=== PATIENT | female | born 1990 | race Caucasian/White ===

== ENCOUNTER 2017-12-05 00:15 | Inpatient (IN) | payer BC ==
[2017-12-05] MEDS ORDERED: LIDOCAINE 0.5% (PF) 5 MG/ML (50 ML SDV) SQ PRN (00:46)
[2017-12-05] MEDS ORDERED: CARBOPROST TROMETHAMINE 250 MCG/ML 1 ML AMP IM PRN (00:46)
[2017-12-05] MEDS ORDERED: OXYTOCIN 10 UNIT/ML 1 ML VIAL IM PRN (00:46)
[2017-12-05] MEDS ORDERED: AMPICILLIN 2,000 MG in SODIUM CHLORIDE 0.9% 100 ML IVPB STA (00:46)
[2017-12-05] MEDS ORDERED: TERBUTALINE 1 MG/ML VIAL SQ PRN (00:46)
[2017-12-05] MEDS ORDERED: METHYLERGONOVINE 0.2 MG/ML 1 ML AMP IM PRN (00:46)
[2017-12-05] MEDS ORDERED: OXYTOCIN 20 UNITS/1000 ML NS 1,000 ML IV SCH ×2 (01:00→13:15)
[2017-12-05] MEDS: LACTATED RINGERS 1,000 ML IV SCH ×3 (01:16→09:27)
--- NOTE | 2017-12-05 01:19 | P.HPOB ---
History of Present Illness H&P Date: 12/05/17 Chief Complaint: Gush of fluid. This patient is a pleasant 27-year-old 1 para 0 female estimated date of confinement 01/02/2018 estimated gestational age 36-0/7 weeks gestation who is admitted to labor and delivery with complaints of gush of fluid that happened approximately 10:30 this evening. Patient's care is per Dr. Sanz and appears to be uncomplicated. Patient did have a positive group B strep culture done at her last visit. Patient is not having any contractions. Review of Systems Gastrointestinal: Reports heartburn Genitourinary: Reports Menstruation: Reports amenorrhea Past Medical History Additional Past Medical History / Comment(s): ADHD. History of Any Multi-Drug Resistant Organisms: None Reported Additional Past Surgical History / Comment(s): Patient had a birthmark removed at age 3. Past Anesthesia/Blood Transfusion Reactions: No Reported Reaction Past Psychological History: ADD/ADHD Smoking Status: Never smoker Past Alcohol Use History: None Reported Past Drug Use History: None Reported Medications and Allergies Home Medications Medication Instructions Recorded Confirmed Type Iron 1 tab PO DAILY 12/05/17 12/05/17 History Pnv No.95/Ferrous Fum/Folic AC 1 tab PO DAILY 12/05/17 12/05/17 History [ Multivitamin Tablet] Allergies Allergy/AdvReac Type Severity Reaction Status Date / Time No Known Allergies Allergy Verified 12/05/17 00:41 Exam Intake and Output 12/04/17 12/04/17 12/05/17 14:59 22:59 06:59 Other: Weight 113.398 kg - OBG Physical Exam Abdomen: bowel sounds normal, no diffuse tenderness, no bruit present, no guarding noted, no hepatomegaly, no splenomegaly, no mass Vulva: both: normal Vagina: normal moisture, no discharge Cervix: no lesion (Cervix is 2 cm dilated 50% effaced and there is gross rupture membranes.), no discharge Uterus: enlarged (Fundal height in the office was 35 cm) Results blood work shows she is O negative, rubella immune, RPR nonreactive, hepatitis B is negative, group B strep was positive, Toxo negative Assessment and Plan Assessment: This is a pleasant 27-year-old 1 para 0 female 36-0/7 weeks gestation with premature rupture of membranes and positive group B strep culture. Plan at this time is antibiotic prophylaxis and Pitocin induction of labor. I did discuss with the patient and her family the fact that the baby is slightly premature and could go to special care. We anticipate vaginal delivery (1) 36 weeks gestation of Current Visit: Yes Status: Acute Code(s): Z3A.36 - 36 WEEKS GESTATION OF SNOMED Code(s): 79392218 (2) Group B streptococcal carriage complicating Current Visit: Yes Status: Acute Code(s): O99.820 - STREPTOCOCCUS B CARRIER STATE COMPLICATING SNOMED Code(s): 714523706996183 (3) premature rupture of membranes Current Visit: Yes Status: Acute Code(s): O42.919 - PRETRM QUE ROM, UNSP TIME BETW RUPT AND ONST LABR, UNSP TRI SNOMED Code(s): 766320523
[2017-12-05 01:29] LABS: Basophils % (A) 0 %; Eosinophils # (A) 0.1 k/uL (0-0.7); Eosinophils % (A) 1 %; HCT 35.1 % (34.0-46.0); HGB 11.4 gm/dL (11.4-16.0); Lymphocytes # (A) 2.1 k/uL (1.0-4.8); Lymphocytes % (A) 17 %; MCH 25.2 pg (25.0-35.0); MCHC 32.7 g/dL (31.0-37.0); MCV 77.2 fL (80.0-100.0); Mean Platelet Volume 7.4; Monocytes # (A) 0.5 k/uL (0-1.0); Monocytes % (A) 4 %; Neutrophils # (A) 9.1 k/uL (1.3-7.7); Neutrophils % (A) 77 %; Platelet Count 206 k/uL (150-450); RBC 4.54 m/uL (3.80-5.40); RDW 14.7 % (11.5-15.5); WBC 11.9 k/uL (3.8-10.6)
[2017-12-05 01:33] VITALS: BMI 42.9
[2017-12-05] MEDS: AMPICILLIN 1,000 MG in SODIUM CHLORIDE 0.9% 50 ML IVPB SCH ×3 (04:52→15:13)
[2017-12-05] MEDS ORDERED: ROPIVACAINE 100 MG, fentaNYL (PF) 200 MCG in SODIUM CHLORIDE 0.9% 76 ML EPIDURAL ONE (09:45)
[2017-12-05] MEDS ORDERED: diphenhydrAMINE 50 MG/ML 1 ML VIAL IVP PRN (13:15)
[2017-12-05] MEDS ORDERED: ZOLPIDEM 5 MG TAB PO PRN (13:15)
[2017-12-05] MEDS ORDERED: HYDROCORTISONE 2.5% RECTAL CREAM 30 GM TUBE RECTAL PRN (13:15)
[2017-12-05] MEDS ORDERED: BENZOCAINE/MENTHOL SPRAY 1 GM/SPRAY AEROSOL TOPICAL PRN (13:15)
[2017-12-05] MEDS ORDERED: SIMETHICONE 80 MG CHEWABLE PO PRN (13:15)
[2017-12-05] MEDS ORDERED: BISACODYL 10 MG SUPP RECTAL PRN (13:15)
[2017-12-05] MEDS ORDERED: WITCH HAZEL 1 EACH MED..PAD TOPICAL PRN (13:15)
[2017-12-05] MEDS ORDERED: Rhogam IMMUNE GLOBULIN 1,500 UNIT/1 ML IM ONE (13:15)
[2017-12-05] MEDS ORDERED: diphenhydrAMINE 25 MG CAP PO PRN (13:15)
[2017-12-05] MEDS ORDERED: LANOLIN CREAM 5 GM TUBE TOPICAL PRN (13:15)
--- NOTE | 2017-12-05 13:21 | P.PROBDLV ---
Vaginal Delivery Note - . Vaginal Delivery Note: Normal vaginal delivery viable female Apgars 9 and 9 delivery time is 1256 hrs. Please see dictated H&P for intimate details of this patient's admission. In brief summary this is a pleasant 27-year-old 1 para 0 female 36-0/7 weeks gestation admitted to labor and delivery with premature rupture membranes. Patient is a positive group B strep culture is 2 cm dilated, therefore she is started on antibiotics and has Pitocin induction of labor. Patient progresses and does get an epidural for pain control. Patient thereafter goes quickly and pushes for approximately 45 minutes and pushes the head to the perineum. The posterior perineum is supported and we have controlled delivery of the infant's head over the intact perineum. Mouth and nares are bulb suctioned. There is a loose nuchal cord which is reduced. With gentle downward traction we then have deliver the anterior and posterior shoulder and rest this infant's body. This is a vigorous viable female infant Apgars are 9 and 9 delivery time is 1256 hrs. After delivery of the infant the infant is late on the mother's abdomen. Once the cord is done pulsating, it is doubly clamped and transected and appears to be trivascular. The placenta is then spontaneously delivered intact. Inspection of the perineum shows a small second-degree posterior laceration which is repaired with 3-0 Vicryl in the usual fashion. Excellent reapproximation is noted. Estimated blood loss is 150 mL. There are no complications. All counts are correct 3. The and mother stable in delivery room.
[2017-12-05] MEDS: IBUPROFEN 600 MG TAB PO PRN ×2 (15:24→20:43)
[2017-12-05] MEDS: ACETAMINOPHEN TAB 325 MG TAB PO PRN (18:15)
[2017-12-06] MEDS: IBUPROFEN 600 MG TAB PO PRN ×3 (08:39→23:50)
--- NOTE | 2017-12-06 09:01 | P.PNOBGVD ---
Subjective - Subjective Principal diagnosis: Status post vaginal delivery day #1 Interval history: Patient is doing well. Lochia is moderate. Pain is well-controlled. She is breast-feeding. Patient reports: Reports appetite normal, Reports voiding normally, Reports pain well controlled, Reports ambulating normally : doing well, nursing well Objective - Latest Vital Signs Latest vital signs: Vital Signs Temp Pulse Resp BP Pulse Ox 12/06/17 00:00 98.5 F 84 16 132/55 99 12/05/17 20:00 97.9 F 84 16 135/75 12/05/17 15:17 97.5 F L 90 16 126/64 12/05/17 14:47 96 16 120/64 12/05/17 14:17 101 H 16 122/61 12/05/17 14:02 96 16 124/65 12/05/17 13:47 109 H 16 136/79 12/05/17 13:32 109 H 16 126/71 12/05/17 13:17 97.5 F L 122 H 16 109/55 Intake and Output 12/05/17 12/06/17 12/06/17 22:59 06:59 14:59 Intake Total 3000 Balance 3000 Intake: IV 3000 Lactated Ringers 1,000 ml 2000 @ 125 mls/hr IV .Q8H ANGELA Rx#:[id number] Oxytocin 20 Units/1000 ml 1000 Ns 1,000 ml @ 1 MILLIUNIT/MIN 3 mls/hr IV .Q24H ANGELA Rx#:[id number] Other: # Voids 1 1 Assessment and Plan Assessment: Impression is status post vaginal delivery day #1. Plan: We'll continue care today. Anticipate discharge home tomorrow.
[2017-12-06] MEDS: SENNOSIDES-DOCUSATE SODIUM 1 EACH TAB PO SCH ×3 (11:54→21:24)
[2017-12-06] MEDS: ACETAMINOPHEN TAB 325 MG TAB PO PRN (20:34)
[2017-12-07] MEDS: IBUPROFEN 600 MG TAB PO PRN (07:42)
[2017-12-07 08:30] VITALS: BP 125/71; PULSE 74; RESP 15; TEMP 97.9
--- NOTE | 2017-12-07 08:37 | P.DS ---
Providers Date of admission: 12/05/17 00:43 Expected date of discharge: 12/07/17 Attending physician: Juliet Sanz Primary care physician: Stated None Hospital Course: 27-year-old female 1 para 0 at 36-0/7 weeks who presented to labor and delivery with complaints of spontaneous rupture of membranes. She did receive antibiotics due to positive group B streptococcus. She delivered vaginally a viable female infant on 12/05/2017 with scores of 9 at 1 minute and 9 at 5 minutes and weight of 6 lbs. 1 oz. Her course has been uncomplicated. She is breast-feeding. Lochia is decreasing. Pain is fairly well controlled with ibuprofen. Vital signs are stable. Abdomen is soft with fundus firm and nontender. Extremities show negative Homans. Impression is status post vaginal delivery day #2. Plan is to discharge home today. Routine instructions are given. She will be given a prescription for a breast pump and ibuprofen. She is advised to follow up in the office in 6 weeks for a check. She is advised to call the office if she has any further questions or concerns prior to her appointment time. Procedures: Spontaneous vaginal delivery of a viable female on 12/05/2017 Patient Condition at Discharge: Stable Plan - Discharge Summary New Discharge Prescriptions: New Ibuprofen [Motrin] 600 mg PO Q6HR PRN #60 tab PRN Reason: Mild Pain Or Fever >= 100.5 Continue Pnv No.95/Ferrous Fum/Folic AC [ Multivitamin Tablet] 1 tab PO DAILY No Action Iron 1 tab PO DAILY Discharge Medication List Iron 1 tab PO DAILY 12/05/17 [History] Pnv No.95/Ferrous Fum/Folic AC [ Multivitamin Tablet] 1 tab PO DAILY [History] Ibuprofen [Motrin] 600 mg PO Q6HR PRN #60 tab 12/07/17 [Rx] Follow up Appointment(s)/Referral(s): Juliet Sanz DO [Doctor of Osteopathic Medicine] - 6 Weeks Activity/Diet/Wound Care/Special Instructions: Instructions 1. Do not begin any exercise program for 3 weeks. 2. Do not resume sexual relations for 3 weeks or longer if uncomfortable. 3. You may take tub baths or showers at any time. 4. You may use tampons if desired after 3 weeks. 5. Keep the area of episiotomy (stitches) clean and dry. 6. If you are not nursing, wear a good fitting, supportive bra during the day and limit fluid intake for at least 1 week to prevent breast engorgement. 7. Call the office, [phone], within the next week to make appointment for your 6 week checkup if it has not already been made. 8. Report any of the following occurrences to the doctor promptly: a. Heavy, excessive bleeding b. Chills, fever c. Burning or frequency of urination d. Pain or redness and breasts if nursing e. Increasing pain or swelling in episiotomy (stitches). In addition to the above instructions, the following additional should be followed: 1. No heavy lifting or straining (exercising) until after 6 week checkup. 2. Keep abdominal incision clean and dry: You may wear a dressing if more comfortable. 3. Make office appointment for 10 days after going home or as instructed by her doctor. Discharge Disposition: HOME SELF-CARE
[2017-12-07] MEDS: SENNOSIDES-DOCUSATE SODIUM 1 EACH TAB PO SCH (12:36)
== END 2017-12-07 10:30 | disposition home or self-care (01) | DRG 807 ==
LOC: FBPOP 00:15 → 4FBP 00:43
PROVIDERS: ADMIT Obstetrics & Gynecology; ATTEND Obstetrics & Gynecology
PROC: 10E0XZZ Delivery of Products of Conception, External Approach (ICD-10-PCS; principal; 2017-12-05)
PROC: 0KQM0ZZ Repair Perineum Muscle, Open Approach (ICD-10-PCS; 2017-12-05)
PROC: 00HU33Z Insertion of Infusion Device into Spinal Canal, Percutaneous Approach (ICD-10-PCS; 2017-12-05)
PROC: 3E0R3BZ Introduction of Anesthetic Agent into Spinal Canal, Percutaneous Approach (ICD-10-PCS; 2017-12-05)
PROC: 3E033VJ Introduction of Other Hormone into Peripheral Vein, Percutaneous Approach (ICD-10-PCS; 2017-12-05)
DX: O42.913 Preterm premature rupture of membranes, unspecified as to length of time between rupture and onset of labor, third trimester (principal); Z37.0 Single live birth; O69.81X0 Labor and delivery complicated by cord around neck, without compression, not applicable or unspecified; O99.824 Streptococcus B carrier state complicating childbirth; O99.344 Other mental disorders complicating childbirth; O70.1 Second degree perineal laceration during delivery; F90.9 Attention-deficit hyperactivity disorder, unspecified type; Z3A.36 36 weeks gestation of pregnancy
CPT/HCPCS: 59025; 84112; 85025; 85461; 86850; 86870; 86880; 86900; 86901; 88307; 99213

== ENCOUNTER 2019-10-14 09:25 | Inpatient (IN) | payer BC ==
[2019-10-14] MEDS ORDERED: CARBOPROST TROMETHAMINE 250 MCG/ML 1 ML AMP IM PRN (09:51)
[2019-10-14] MEDS ORDERED: TERBUTALINE 1 MG/ML VIAL SQ PRN (09:51)
[2019-10-14] MEDS ORDERED: OXYTOCIN 10 UNIT/ML 1 ML VIAL IM PRN (09:51)
[2019-10-14] MEDS ORDERED: METHYLERGONOVINE 0.2 MG/ML 1 ML AMP IM PRN (09:51)
[2019-10-14] MEDS ORDERED: LIDOCAINE 0.5% (PF) 5 MG/ML (50 ML SDV) SQ PRN (09:51)
[2019-10-14] MEDS ORDERED: OXYTOCIN 30 UNITS/500 ML NS 30 UNIT in SALINE 1 500ML.BAG IV SCH (10:00)
[2019-10-14] MEDS: LACTATED RINGERS 1,000 ML IV SCH ×2 (10:16→10:36)
[2019-10-14 10:17] LABS: Basophils # (A) 0.1 k/uL (0-0.2); Basophils % (A) 0 %; Eosinophils # (A) 0.1 k/uL (0-0.7); Eosinophils % (A) 1 %; HCT 36.4 % (34.0-46.0); Lymphocytes # (A) 1.6 k/uL (1.0-4.8); Lymphocytes % (A) 14 %; MCHC 33.1 g/dL (31.0-37.0); MCV 75.5 fL (80.0-100.0); Mean Platelet Volume 7.6; Microcytosis Slight; Monocytes # (A) 0.5 k/uL (0-1.0); Monocytes % (A) 4 %; Neutrophils # (A) 9.1 k/uL (1.3-7.7); Neutrophils % (A) 80 %; Platelet Count 225 k/uL (150-450); RBC 4.82 m/uL (3.80-5.40); RDW 14.6 % (11.5-15.5); WBC 11.4 k/uL (3.8-10.6)
[2019-10-14] MEDS ORDERED: ROPIVACAINE 5MG/ML 20ML VIAL ONE (10:24)
[2019-10-14] MEDS ORDERED: SODIUM CHLORIDE 0.9% 100 ML BAG ONE (10:24)
[2019-10-14] MEDS ORDERED: fentaNYL (PF) 50 MCG/ML 5 ML AMP ONE (10:24)
--- NOTE | 2019-10-14 11:50 | P.HPOB ---
History of Present Illness H&P Date: 10/14/19 Chief Complaint: Contractions This is a 29-year-old female 2 para 1 with an estimated date of confinement of 11/06/2019, estimated gestational age of 36-5/7 weeks, who presents to labor and delivery with complaints of contractions that began approximately 7 AM this morning. She denies rupture of membranes. course has been essentially uncomplicated up until this point. She admits to good movement. labs: Hepatitis B surface antigen-negative RPR-nonreactive Rubella-immune Blood type-O- Antibody screen-negative RhoGAM was given at 28 weeks Hemoglobin-11.5 Toxoplasma screen-negative Random glucose-78 Obstetrical ultrasound-normal anatomy One hour Glucola-102 GC/chlamydia/Trichomonas-negative Group B streptococcus-negative Obstetrical history: . History of 1 vaginal delivery at 36 weeks. Gynecologic history: No history of sexual transmitted diseases. Social history: She is single. She works as a pharmacist. Review of Systems Constitutional: Denies chills, Denies fever Eyes: denies blurred vision, denies pain Ears, nose, mouth and throat: Denies headache, Denies sore throat Cardiovascular: Denies chest pain, Denies shortness of breath Respiratory: Denies cough Gastrointestinal: Reports abdominal pain (Contractions) Genitourinary: Reports pelvic pain, Reports Musculoskeletal: Reports low back pain Integumentary: Denies pruritus, Denies rash Neurological: Denies numbness, Denies weakness Psychiatric: Denies anxiety, Denies depression Past Medical History Past Medical History: No Reported History Additional Past Medical History / Comment(s): ADHD. History of Any Multi-Drug Resistant Organisms: None Reported Additional Past Surgical History / Comment(s): Patient had a birthmark removed at age 3. Past Anesthesia/Blood Transfusion Reactions: No Reported Reaction Past Psychological History: ADD/ADHD Smoking Status: Never smoker Past Alcohol Use History: None Reported Past Drug Use History: None Reported - Past Family History Mother Family Medical History: Cancer Additional Family Medical History / Comment(s): skin cancer Medications and Allergies Home Medications Medication Instructions Recorded Confirmed Type Iron 1 tab PO DAILY 12/05/17 12/05/17 History Pnv No.95/Ferrous Fum/Folic AC 1 tab PO DAILY 12/05/17 10/14/19 History [ Multivitamin Tablet] Allergies Allergy/AdvReac Type Severity Reaction Status Date / Time No Known Allergies Allergy Verified 12/05/17 00:41 Exam Osteopathic Statement: *. No significant issues noted on an osteopathic structural exam other than those noted in the History and Physical/Consult. Vital Signs Temp Pulse Resp BP Pulse Ox 10/14/19 10:05 97.5 F L 78 18 124/70 98 Intake and Output 10/13/19 10/14/19 10/14/19 22:59 06:59 14:59 Other: Weight 107.048 kg Gen.: Well-developed well-nourished female in no acute distress HEENT: Within normal limits Heart: Regular rate and rhythm Lungs: Clear to auscultation bilaterally Abdomen: Cervix: 6-7/90%/-2 station heart tones: Category 1 Contractions: Every 2-3 minutes Extremities: Negative Homans Results Result Diagrams: 10/14/19 09:55 Abnormal Lab Results - Last 24 Hours (Table) 10/14/19 Range/Units 09:55 WBC 11.4 H (3.8-10.6) k/uL MCV 75.5 L (80.0-100.0) fL Neutrophils # 9.1 H (1.3-7.7) k/uL Assessment and Plan (1) 36 weeks gestation of Current Visit: No Status: Acute Code(s): Z3A.36 - 36 WEEKS GESTATION OF SNOMED Code(s): 00011182 Plan: Admission for active labor. Artificial rupture membranes. Expectant management. Epidural anesthesia if desired.
--- NOTE | 2019-10-14 11:52 | P.MSEPDOC ---
Presenting Problems - Arrival Data Date of Arrival on Unit: 10/14/19 Time of Arrival on Unit: 09:30 Mode of Transport: Ambulatory Medical History - Information : 2 Para: 1 Term: 1 : 0 Abortions: Spontaneous or Elective: 0 Number of Living Children: 1 - Gestational Age Gestational Age by DELPHINE (wks/days): 36 Weeks and 5 Days Vital Signs - Temperature Temperature: 97.5 F Temperature Source: Oral - Pulse Right Sitting Brachial Pulse Rate: 78 Pulse Assessment Method: Automatic Cuff - Respirations Respiratory Rate: 18 Oxygen Delivery Method: Room Air O2 Sat by Pulse Oximetry: 98 - Blood Pressure Right Arm Sitting Blood Pressure: 124/70 Blood Pressure Mean: 88 Blood Pressure Source: Automatic Cuff I agree with the RN Medical Screening Exam: Yes Risk & Benefit of care provided described in d/c instruction: Yes Diagnosis: ENCOUNTER FOR FULL-TERM UNCOMPLICATED DELIVERY
[2019-10-14] MEDS ORDERED: BENZOCAINE/MENTHOL SPRAY 1 GM/SPRAY AEROSOL TOPICAL PRN (13:08)
[2019-10-14] MEDS ORDERED: ZOLPIDEM 5 MG TAB PO PRN (13:08)
[2019-10-14] MEDS ORDERED: OXYTOCIN 20 UNITS/1000 ML NS 1,000 ML IV SCH (13:08)
[2019-10-14] MEDS ORDERED: HYDROCORTISONE 2.5% RECTAL CREAM 30 GM TUBE RECTAL PRN (13:08)
[2019-10-14] MEDS ORDERED: diphenhydrAMINE 50 MG/ML 1 ML VIAL IVP PRN ×2 (13:08)
[2019-10-14] MEDS ORDERED: SIMETHICONE 80 MG CHEWABLE PO PRN (13:08)
[2019-10-14] MEDS ORDERED: diphenhydrAMINE 50 MG CAP PO PRN (13:08)
[2019-10-14] MEDS ORDERED: diphenhydrAMINE 25 MG CAP PO PRN (13:08)
[2019-10-14] MEDS ORDERED: LANOLIN CREAM 5 GM TUBE TOPICAL PRN (13:08)
[2019-10-14] MEDS ORDERED: ACETAMINOPHEN TAB 325 MG TAB PO PRN (13:08)
[2019-10-14] MEDS: IBUPROFEN 600 MG TAB PO PRN ×2 (13:26→19:33)
--- NOTE | 2019-10-14 13:26 | P.PROBDLV ---
Vaginal Delivery Note - . Vaginal Delivery Note: The patient progressed to complete dilation after artificial rupture membranes with clear fluid noted and epidural anesthesia. Once reaching complete, she began pushing. 's head came to a crown. With one further push, the 's head delivered across the perineum followed by the anterior shoulder. Nose and mouth were bulb suctioned. With one remaining push, the remainder the easily delivered and was placed on mother's abdomen. Cord was clamped a nd cut and was taken to warmer for evaluation. A viable male infant is noted with scores of 8 at 1 minute and 9 at 5 minutes and infant weight of 6 lbs. 0 oz. Cord blood was obtained secondary to Rh- status. Placenta delivered shortly thereafter, intact, with a three-vessel cord. Uterus contracted well after oxytocin was given and uterine massage was carried out. Inspection of the perineum revealed a small second-degree perineal laceration. This area was anesthetized with 1% lidocaine and then sutured with 3-0 Vicryl suture in the usual multilayer fashion. Estimated blood loss is approximately 100 mL's. Both mother and are in stable condition.
[2019-10-14] MEDS ORDERED: Rhogam IMMUNE GLOBULIN 1,500 UNIT/1 ML IM ONE (17:04)
[2019-10-14 21:19] VITALS: RESP 16
[2019-10-14] MEDS: SENNOSIDES-DOCUSATE SODIUM 1 EACH TAB PO SCH (21:19)
[2019-10-15] MEDS: IBUPROFEN 600 MG TAB PO PRN ×3 (02:15→14:49)
[2019-10-15 06:31] LABS: Basophils # (A) 0.1 k/uL (0-0.2); Basophils % (A) 0 %; Eosinophils # (A) 0.1 k/uL (0-0.7); Eosinophils % (A) 1 %; HCT 33.9 % (34.0-46.0); HGB 10.7 gm/dL (11.4-16.0); Lymphocytes # (A) 2.3 k/uL (1.0-4.8); Lymphocytes % (A) 18 %; MCH 24.4 pg (25.0-35.0); MCHC 31.6 g/dL (31.0-37.0); MCV 77.2 fL (80.0-100.0); Mean Platelet Volume 7.8; Monocytes # (A) 0.5 k/uL (0-1.0); Monocytes % (A) 4 %; Neutrophils # (A) 9.4 k/uL (1.3-7.7); Neutrophils % (A) 75 %; Platelet Count 213 k/uL (150-450); RBC 4.38 m/uL (3.80-5.40); RDW 14.7 % (11.5-15.5); WBC 12.6 k/uL (3.8-10.6)
--- NOTE | 2019-10-15 08:34 | P.DS ---
Providers Date of admission: 10/14/19 09:59 Expected date of discharge: 10/15/19 Attending physician: Juliet Sanz Primary care physician: Juliet Sanz - Discharge Diagnosis(es) (1) 36 weeks gestation of Current Visit: No Status: Acute Hospital Course: This is a 29-year-old female 2 para 1 at 36-5/7 weeks who presented with active labor. She delivered vaginally a viable male infant with scores of 8 at 1 minute and 9 at 5 minutes and weight of 6 lbs. 0 oz. on 10/14/2019. Her course has been uncomplicated. Lochia is minimal. She is breast-feeding. Pain is well-controlled. Vital signs are stable. Abdomen is soft with fundus firm and nontender. Extremities show negative Homans. Impression is status post vaginal delivery day #1. Plan is to discharge home today. Routine instructions are given. She has a breast pump at home. She will be given up her prescription for ibuprofen. She is advised to call the office if she has any further questions or concerns prior to her appointment time. Procedures: Spontaneous vaginal delivery of a viable male on 10/14/2019 Patient Condition at Discharge: Stable Plan - Discharge Summary New Discharge Prescriptions: New Ibuprofen [Motrin] 600 mg PO Q6HR PRN #60 tab PRN Reason: Mild Pain Or Fever >= 100.5 Continue Pnv No.95/Ferrous Fum/Folic AC [ Multivitamin Tablet] 1 tab PO DAILY Iron 1 tab PO DAILY Discharge Medication List Iron 1 tab PO DAILY 12/05/17 [History] Pnv No.95/Ferrous Fum/Folic AC [ Multivitamin Tablet] 1 tab PO DAILY 12/05/17 [History] Ibuprofen [Motrin] 600 mg PO Q6HR PRN #60 tab 10/15/19 [Rx] Follow up Appointment(s)/Referral(s): Juliet Sanz DO [Primary Care Provider] - 1 Week Activity/Diet/Wound Care/Special Instructions: Instructions 1. Do not begin any exercise program for 3 weeks. 2. Do not resume sexual relations for 3 weeks or longer if uncomfortable. 3. You may take tub baths or showers at any time. 4. You may use tampons if desired after 3 weeks. 5. Keep the area of episiotomy (stitches) clean and dry. 6. If you are not nursing, wear a good fitting, supportive bra during the day and limit fluid intake for at least 1 week to prevent breast engorgement. 7. Call the office, [phone], within the next week to make appointment for your 6 week checkup if it has not already been made. 8. Report any of the following occurrences to the doctor promptly: a. Heavy, excessive bleeding b. Chills, fever c. Burning or frequency of urination d. Pain or redness and breasts if nursing e. Increasing pain or swelling in episiotomy (stitches). In addition to the above instructions, the following additional should be followed: 1. No heavy lifting or straining (exercising) until after 6 week checkup. 2. Keep abdominal incision clean and dry: You may wear a dressing if more comfortable. 3. Make office appointment for 10 days after going home or as instructed by her doctor. Discharge Disposition: HOME SELF-CARE
[2019-10-15] MEDS ORDERED: PRENATAL VIT-IRON-FOLIC ACID 1 EACH CAP PO SCH (09:00)
[2019-10-15 09:48] VITALS: BP 121/72; PULSE 68; TEMP 98.3
[2019-10-15] MEDS: SENNOSIDES-DOCUSATE SODIUM 1 EACH TAB PO SCH (09:58)
== END 2019-10-15 15:00 | disposition home or self-care (01) | DRG 807 ==
LOC: FBPOP 09:25 → 4FBP 09:59
PROVIDERS: ADMIT Obstetrics & Gynecology; ATTEND Obstetrics & Gynecology
PROC: 3E0R3BZ Introduction of Anesthetic Agent into Spinal Canal, Percutaneous Approach (ICD-10-PCS; principal; 2019-10-14)
PROC: 0KQM0ZZ Repair Perineum Muscle, Open Approach (ICD-10-PCS; principal; 2019-10-14)
PROC: 00HU33Z Insertion of Infusion Device into Spinal Canal, Percutaneous Approach (ICD-10-PCS; principal; 2019-10-14)
PROC: 10E0XZZ Delivery of Products of Conception, External Approach (ICD-10-PCS; principal; 2019-10-14)
DX: O99.344 Other mental disorders complicating childbirth (principal); Z37.0 Single live birth; F90.9 Attention-deficit hyperactivity disorder, unspecified type; O70.1 Second degree perineal laceration during delivery; Z3A.36 36 weeks gestation of pregnancy; Z80.8 Family history of malignant neoplasm of other organs or systems
CPT/HCPCS: 59025; 85025; 85461; 86850; 86870; 86880; 86900; 86901; 90471; 99213

== ENCOUNTER 2021-08-12 17:05 | Outpatient (CLI) | payer BC ==
[2021-08-12 18:22] VITALS: BP 137/69; PULSE 80; RESP 18
--- NOTE | 2021-08-14 08:51 | P.MSEPDOC ---
Presenting Problems - Arrival Data Date of Arrival on Unit: 08/12/21 Time of Arrival on Unit: 17:05 Mode of Transport: Ambulatory - Complaint OB-Reason for Admission/Chief Complaint: Other Comment: elevated bp reading at work. 1530 last 160/110 and occasional numbness in hands. Medical History - Information : 3 Para: 2 Term: 0 : 2 Abortions: Spontaneous or Elective: 0 Number of Living Children: 2 - Gestational Age Gestational Age by DELPHINE (wks/days): 36 Weeks and 3 Days Review of Systems - Review of Systems Constitutional: No problems Breast: No problems ENT: No problems Cardiovascular: No problems Respiratory: No problems Gastrointestinal: No problems Genitourinary: No problems Musculoskeletal: No problems Neurological: No problems Skin: No problems Vital Signs - Pulse Right Pulse Rate: 80 Pulse Assessment Method: Automatic Cuff - Respirations Respiratory Rate: 18 Oxygen Delivery Method: Room Air - Blood Pressure Right Arm Blood Pressure: 137/69 Blood Pressure Mean: 91 Blood Pressure Source: Automatic Cuff Medical Screen Scoring - Assessment - Baby A Baseline FHR: 150 Heart Rate - NICHD Category: Category I (Normal) NST: Reactive Physician Notification - Physician Notified Physician Notified Date: 08/12/21 Physician Notified Time: 17:40 Physician: Moni Castañeda Order Received: Yes (Note to be off work. Keep apt on 08/15 in office with Sanz and bp log.) Maternal Triage Index - Maternal Triage Index Presenting for scheduled procedure w/no complaint: No - Stat/Priority 1 Stat Priority 1: No - Urgent/Priority 2 Urgent Priority 2: No - Prompt/Priority 3 Prompt Priority 3: No - Non-Urgent/Priority 4 Non-Urgent Priority 4: Yes Criteria Met for Priority 4: C/O elevated bp reading at work and occasional numbness in hands. Disposition - Disposition OB Disposition: Discharge to home Discharge Date: 08/12/21 Discharge Time: 17:54 I agree with the RN Medical Screening Exam: Yes Case reviewed; plan agreed upon as documented in EMR&OBIX.: Yes Diagnosis: GESTATIONAL HTN W/O SIGNIFICANT PROTEINURIA, THIRD TRIMESTER
== END 2021-08-12 17:54 | disposition home or self-care (01) ==
LOC: FBPOP 17:05
PROVIDERS: ATTEND Obstetrics & Gynecology
DX: O13.3 Gestational [pregnancy-induced] hypertension without significant proteinuria, third trimester (principal); Z3A.36 36 weeks gestation of pregnancy
CPT/HCPCS: 59025; 99213

== ENCOUNTER 2021-08-15 13:00 | Inpatient (IN) | payer BC ==
[2021-08-15] MEDS ORDERED: CITRIC ACID-SODIUM CITRATE 15 ML CUP PO ONE (13:33)
[2021-08-15] MEDS ORDERED: LACTATED RINGERS 1,000 ML IV ONE (13:33)
[2021-08-15 13:55] LABS: Basophils % (A) 0 %; Eosinophils % (A) 0 %; HCT 33.7 % (34.0-46.0); HGB 11.5 gm/dL (11.4-16.0); Lymphocytes # (A) 1.7 k/uL (1.0-4.8); Lymphocytes % (A) 16 %; MCH 26.6 pg (25.0-35.0); MCHC 34.3 g/dL (31.0-37.0); MCV 77.7 fL (80.0-100.0); Mean Platelet Volume 8.7; Monocytes # (A) 0.4 k/uL (0-1.0); Monocytes % (A) 4 %; Neutrophils # (A) 8.4 k/uL (1.3-7.7); Neutrophils % (A) 78 %; Platelet Count 194 k/uL (150-450); RBC 4.33 m/uL (3.80-5.40); RDW 15.2 % (11.5-15.5); WBC 10.8 k/uL (3.8-10.6)
[2021-08-15 14:03] LABS: INR 0.9 (<1.2); Partial Thromboplastin Time 24.7 sec (22.0-30.0); Prothrombin Time 9.6 sec (9.0-12.0)
[2021-08-15 14:04] LABS: Creatinine,Urine Random 89.2 mg/dL; Protein/Creatinine Ratio,Urine 0.168
[2021-08-15 14:06] LABS: ALT 10 U/L (4-34); AST 21 U/L (14-36); African American GFR (CKD) >90 (>60 ml/min/1.73 sqM); Blood Urea Nitrogen 10 mg/dL (7-17); LDH 526 U/L (313-618); Non-African American GFR(CKD) >90 (>60 ml/min/1.73 sqM); Uric Acid 3.2 mg/dL (3.7-7.4)
[2021-08-15] MEDS: LACTATED RINGERS 1,000 ML IV SCH ×2 (14:08→21:00)
[2021-08-15 14:26] LABS: Appearance,Urine Cloudy (Clear); Bacteria,Urine Occasional /hpf; Bilirubin,Urine Negative (Negative); Blood,Urine Negative (Negative); Color,Urine Light Yellow; Glucose,Urine (UA) Negative (Negative); Ketones,Urine Negative (Negative); Leukocyte Esterase,Urine Large (Negative); Mucus,Urine Rare /hpf; Nitrite,Urine Negative (Negative); PH, Urine 6.5 (5.0-8.0); Protein,Urine Trace (Negative); RBC,Urine <1 /hpf (0-5); Squamous Epithelial Cell,Urine 6 /hpf (0-4); Urobilinogen,Urine <2.0 mg/dL (<2.0); WBC,Urine 5 /hpf (0-5)
[2021-08-15] MEDS ORDERED: CALCIUM GLUCONATE 1 GM/10 ML VIAL IV PRN (15:39)
[2021-08-15] MEDS ORDERED: MAGNESIUM SULFATE GM 6 GM in SODIUM CHLORIDE 0.9% 100 ML IVPB ONE (15:39)
[2021-08-15] MEDS: MAGNESIUM SULFATE-WATER PMX 20 GM in WATER FOR INJECTION 1 500ML.BAG IV SCH (16:21)
[2021-08-15] MEDS ORDERED: KETOROLAC 30 MG/ML 1 ML VIAL ONE (16:55)
[2021-08-15] MEDS ORDERED: NALBUPHINE 10 MG/ML (1 ML AMP) ONE (16:55)
[2021-08-15] MEDS ORDERED: ONDANSETRON 4 MG/2 ML VIAL ONE (16:55)
[2021-08-15] MEDS ORDERED: PHENYLEPHRINE-0.9% NACL SYG 1,000 MCG/10 ML SYRINGE ONE (16:55)
--- NOTE | 2021-08-15 17:50 | P.HPOB ---
History of Present Illness H&P Date: 08/15/21 Chief Complaint: Anhydramnios, preeclampsia This is a 31-year-old female 3 para 2 at 36-6/7 weeks who presented to the office today for her scheduled visit. She underwent a biophysical profile due to preeclampsia diagnosed a few weeks ago. She had no fluid and no breathing. Her NST was reactive. The patient did state she went to triage 2 days ago for elevated blood pressures at home however her blood pressures in triage were normal. She was getting some blood pressures in the severe range. Today in the office her blood pressure was 170/94. She denies any headaches or blurry vision. She denies any epigastric pain. She has been noticing good f etal movement. In addition on ultrasound today the baby is noted to be in a marylou breech presentation. She is sent to labor and delivery for primary section due to breech presentation and anhydramnios. In addition she had a previous diagnosis of preeclampsia based on PC ratio of 0.3. labs GC/madi/Trichomonas-negative Hepatitis B surface antigen-negative RPR-nonreactive Rubella-immune Blood type-O- Antibody screen-negative Hemoglobin-11.9 Random glucose-86 Group B streptococcus-negative Obstetrical history: . History of 2 deliveries. Her first delivery was at 36 weeks vaginally. Her second delivery was at 36-5/7 weeks with threatened labor with a vaginal delivery. Gynecologic history: No history of sexually transmitted diseases. Social history: She is single. She works as a pharmacist. Review of Systems Constitutional: Denies chills, Denies fever Eyes: denies blurred vision, denies pain Ears, nose, mouth and throat: Denies headache, Denies sore throat Cardiovascular: Denies chest pain, Denies shortness of breath Respiratory: Denies cough Gastrointestinal: Reports abdominal pain (Irregular contractions) Genitourinary: Reports pelvic pain, Reports Musculoskeletal: Reports low back pain Integumentary: Denies pruritus, Denies rash Neurological: Denies numbness, Denies weakness Psychiatric: Denies anxiety, Denies depression Past Medical History Past Medical History: No Reported History History of Any Multi-Drug Resistant Organisms: None Reported Additional Past Surgical History / Comment(s): Patient had a birthmark removed at age 3. Past Anesthesia/Blood Transfusion Reactions: No Reported Reaction Past Psychological History: ADD/ADHD Smoking Status: Never smoker Past Alcohol Use History: None Reported Past Drug Use History: None Reported - Past Family History Mother Family Medical History: Cancer Additional Family Medical History / Comment(s): skin cancer Medications and Allergies Home Medications Medication Instructions Recorded Confirmed Type Iron 1 tab PO DAILY 12/05/17 08/15/21 History Pnv No.95/Ferrous Fum/Folic AC 1 tab PO DAILY 12/05/17 08/15/21 History [ Multivitamin Tablet] Allergies Allergy/AdvReac Type Severity Reaction Status Date / Time No Known Allergies Allergy Verified 08/15/21 14:00 Exam Osteopathic Statement: *. No significant issues noted on an osteopathic s tructural exam other than those noted in the History and Physical/Consult. Vital Signs Temp Pulse Resp BP Pulse Ox 08/15/21 13:47 96.7 F L 82 16 132/92 98 Intake and Output 08/15/21 08/15/21 08/15/21 06:59 14:59 22:59 Other: Voiding Method Indwelling Catheter # Voids 1 Weight 111.13 kg HEENT: Within normal limits Heart: Regular rate and rhythm Lungs: Clear to auscultation bilaterally Abdomen: Cervix: At her last check a week ago was 1.5 cm/60%/-2 station heart tones: Category 1 tracing with no regular contractions Extremities: Negative Homans, deep tendon reflexes 2 over 4 bilaterally Results Result Diagrams: 08/15/21 13:30 08/15/21 13:30 Abnormal Lab Results - Last 24 Hours (Table) 08/15/21 08/15/21 08/15/21 Range/Units 13:30 13:30 13:30 WBC 10.8 H (3.8-10.6) k/uL Hct 33.7 L (34.0-46.0) % MCV 77.7 L (80.0-100.0) fL Neutrophils # 8.4 H (1.3-7.7) k/uL Creatinine 0.49 L (0.52-1.04) mg/dL Uric Acid 3.2 L (3.7-7.4) mg/dL Urine Appearance Cloudy H (Clear) Urine Protein Trace H (Negative) Ur Leukocyte Esterase Large H (Negative) Ur Squamous Epith Cells 6 H (0-4) /hpf Urine Bacteria Occasional H (None) /hpf Urine Mucus Rare H (None) /hpf Assessment and Plan (1) Anhydramnios in third trimester Current Visit: Yes Status: Acute Code(s): O41.03X0 - OLIGOHYDRAMNIOS, THIRD TRIMESTER, NOT APPLICABLE OR UNSP SNOMED Code(s): 535761773 (2) Pre-eclampsia Current Visit: Yes Status: Acute Code(s): O14.90 - UNSPECIFIED PRE- ECLAMPSIA, UNSPECIFIED TRIMESTER SNOMED Code(s): 680933715 (3) Breech presentation at Current Visit: Yes Status: Acute Code(s): O32.1XX0 - MATERNAL CARE FOR BREECH PRESENTATION, UNSP SNOMED Code(s): 924186705 (4) 36 weeks gestation of Current Visit: No Status: Acute Code(s): Z3A.36 - 36 WEEKS GESTATION OF SNOMED Code(s): 64942442 Plan: Admission for section due to anhydramnios and breech presentation along with previous diagnosis of preeclampsia. Close observation of blood pressures and preeclamptic labs. Will start magnesium sulfate seizure prophylaxis.
--- NOTE | 2021-08-15 17:54 | P.OP ---
Date of Procedure: 08/15/21 Preoperative Diagnosis: 1. Intrauterine at 36-6/7 weeks. 2. Anhydramnios. 3. Breech presentation. 4. Severe preeclampsia. Postoperative Diagnosis: Same Procedure(s) Performed: Primary low transverse section Anesthesia: spinal (Duramorph) Surgeon: Juliet Sanz Crutching Contractor #1: Sebastien Urban Estimated Blood Loss (ml): 336 Pathology: other (Placenta) Condition: stable Disposition: floor Indications for Procedure: This is a 31-year-old female 3 para 2 at 36-6/7 weeks who is diagnosed with anhydramnios and breech presentation. Her biophysical profile was 6 out of 10. In addition her blood pressures were increasing to the point of severe preeclampsia. She was started on magnesium sulfates seizure prophylaxis. I have discussed the risks, benefits, and alternative therapies for the above- mentioned procedure and for both sedation/anesthesia as well as necessary blood products administration, if indicated, as they pertain to this patient. The patient has indicated her understanding and acceptance of the risks and p rocedures discussed. Operative Findings: A viable male is noted in the marylou breech presentation with scores of 8 at 1 minute and 9 at 5 minutes and infant weight of 4 lbs. 15 oz. Normal uterus tubes and ovaries are noted. Description of Procedure: The patient is taken to the operating room where she is placed in the dorsal supine position with leftward tilt after spinal Duramorph anesthesia is given. She is prepped and draped in the normal sterile fashion. Skin was tested and found to be adequately anesthetized. A Pfannenstiel skin incision was made with a scalpel. A second knife was used to carry the incision down to the underlying layer of fascia. The fascia was nicked in the midline with a scalpel and then extended laterally bilaterally with Jacobsen scissors. The anterior lip of the fascia was grasped with 2 Samuel clamps and then dissected off the underlying rectus muscle in the midline with Jacobsen scissors. The inferior aspect of the fascial incision was grasped with 2 Samuel clamps and dissected off the underlying rectus muscle and the midline with Jacobsen scissors. Next the peritoneum layer was tented up with 2 hemostats and then entered sharply with the scalpel. The incision is extended superiorly and inferiorly with Metzenbaum scissors. Next a DeLee retractor is placed. The vesicouterine peritoneum is entered sharply with Metzenbaum scissors and extended laterally bilaterally with Metzenbaum scissors and then the bladder flap is pushed inferiorly. The lower uterine segment is incised in transverse fashion with the scalpel and then bluntly entered with a hemostat. Minimal clear fluid is noted. The incision was then extended laterally bilaterally with 2 fingers. Next the 's buttocks is delivered through the incision followed by each leg followed by the arms in a flexed position and then the head. Nose and mouth are bulb suctioned after delivery. Cord is clamped and cut. Cord blood was obtained. Infant is taken to warmer by nursing staff. Uterine fundus is gently massaged and placenta is delivered manually. Uterus is exteriorized and cleared of all clots and debris. Uterine incision is closed with 0 Vicryl suture in a running locked fashion. A second layer of 0 Vicryl suture is used in a running fashion for hemostasis. Once adequate hemostasis as assured, the vesicouterine peritoneum is reapproximated with 2-0 Vicryl suture in a running fashion. Posterior cul-de-sac is suctioned of all clots and debris. Uterus is returned to the abdomen. Incision is noted to be hemostatic. Peritoneal layer is closed with 0 Vicryl suture in a running fashion. Muscle layer is reapproximated with 0 Vicryl suture in interrupted fashion. Fascia layer is then closed with 0 PDS suture with 2 sutures meeting in the midline and the knots buried in either side and in the midline. The subcutaneous tissue was then closed with 2-0 Vicryl suture. Skin layer was then closed with felicitas. All sponge and needle counts are correct. The patient is taken to recovery room in stable condition.
[2021-08-15] MEDS ORDERED: ZOLPIDEM 5 MG TAB PO PRN (18:28)
[2021-08-15] MEDS ORDERED: METOCLOPRAMIDE 5 MG/ML 2 ML VIAL IVP PRN (18:28)
[2021-08-15] MEDS ORDERED: ONDANSETRON 4 MG/2 ML VIAL IVP PRN (18:28)
[2021-08-15] MEDS ORDERED: diphenhydrAMINE 50 MG/ML 1 ML VIAL IVP PRN ×2 (18:28)
[2021-08-15] MEDS ORDERED: diphenhydrAMINE 25 MG CAP PO PRN (18:28)
[2021-08-15] MEDS ORDERED: KETOROLAC 15 MG/ML 1 ML VIAL IVP PRN (18:28)
[2021-08-15] MEDS ORDERED: diphenhydrAMINE 50 MG CAP PO PRN (18:28)
[2021-08-15] MEDS ORDERED: NALOXONE 0.4 MG/ML 1 ML VIAL IV PRN (18:28)
[2021-08-15] MEDS ORDERED: LABETALOL 5 MG/ML VIAL MDV IVP PRN ×3 (18:33)
[2021-08-15] MEDS ORDERED: hydrALAZINE HCL 20 MG/ML 1 ML VIAL IVP PRN (18:33)
[2021-08-15] MEDS ORDERED: Rhogam IMMUNE GLOBULIN 1,500 UNIT/1 ML IM ONE (20:26)
[2021-08-15] MEDS: SENNOSIDES-DOCUSATE SODIUM 1 EACH TAB PO SCH (20:39)
[2021-08-15] MEDS: ACETAMINOPHEN TAB 500 MG TAB PO SCH (21:29)
[2021-08-16] MEDS: IBUPROFEN 600 MG TAB PO SCH ×4 (02:24→21:38)
[2021-08-16] MEDS: MAGNESIUM SULFATE-WATER PMX 20 GM in WATER FOR INJECTION 1 500ML.BAG IV SCH ×2 (02:45→13:16)
[2021-08-16] MEDS: LACTATED RINGERS 1,000 ML IV SCH ×3 (04:17→06:00)
[2021-08-16] MEDS: ACETAMINOPHEN TAB 500 MG TAB PO SCH ×3 (05:44→18:56)
--- NOTE | 2021-08-16 06:54 | P.PNOBGPC ---
Subjective - Subjective Patient reports: Reports appetite normal, Reports voiding normally, Reports pain well controlled, Reports ambulating normally : doing well Objective - Vital Signs Latest vital signs: Vital Signs Temp Pulse Resp BP Pulse Ox 08/16/21 05:00 71 15 127/80 100 08/16/21 03:00 15 08/16/21 02:00 98.0 F 76 16 131/74 100 08/16/21 01:00 70 15 143/67 99 08/16/21 00:00 98.1 F 75 14 129/75 99 08/15/21 22:00 78 15 144/82 93 L 08/15/21 21:00 80 15 146/85 100 08/15/21 20:00 98.0 F 75 16 126/72 100 08/15/21 19:48 97.8 F 87 16 150/90 97 08/15/21 19:18 86 15 152/74 99 08/15/21 18:48 91 15 153/93 98 08/15/21 18:33 92 16 142/74 100 08/15/21 18:18 89 16 137/73 99 08/15/21 18:03 84 16 134/73 99 08/15/21 17:48 96.7 F L 85 16 134/73 99 08/15/21 13:47 96.7 F L 82 16 132/92 98 Intake and Output 08/15/21 08/15/21 08/16/21 14:59 22:59 06:59 Intake Total 1820 2025 Output Total 772 1200 Balance 1048 825 Intake: IV 200 400 Magnesium Sulfate-Water 200 400 Pmx 20 gm In Water For Injection 1 500ml.bag @ 2 GM/HR 50 mls/hr IV .Q10H ANGELA Rx#:[id number] Intake, IV Titration 660 1625 Amount Lactated Ringers 1,000 ml 410 125 @ 125 mls/hr IV .Q8H ANGELA Rx#:[id number] Lactated Ringers 1,000 ml 250 1000 @ 125 mls/hr IV .Q8H ANGELA Rx#:[id number] Magnesium Sulfate-Water 500 Pmx 20 gm In Water For Injection 1 500ml.bag @ 2 GM/HR 50 mls/hr IV .Q10H ANGELA Rx#:[id number] Oral 960 Output: Urine 400 1200 Output, Quantitative 372 Blood Loss Other: Voiding Method Indwelling Catheter Indwelling Catheter # Voids 1 1 Weight 111.13 kg - Exam Lungs: bilateral: normal Chest: Normal S1, Normal S2 Extremities: Present: normal Abdomen: Present: normal appearance, soft. Absent: distention, tenderness Incision: Present: normal, dry, intact Uterus: Present: normal, firm - Labs Labs: Abnormal Lab Results - Last 24 Hours (Table) 08/15/21 08/15/21 08/15/21 Range/Units 13:30 13:30 13:30 WBC 10.8 H (3.8-10.6) k/uL Hct 33.7 L (34.0-46.0) % MCV 77.7 L (80.0-100.0) fL Neutrophils # 8.4 H (1.3-7.7) k/uL Creatinine 0.49 L (0.52-1.04) mg/dL Uric Acid 3.2 L (3.7-7.4) mg/dL Urine Appearance Cloudy H (Clear) Urine Protein Trace H (Negative) Ur Leukocyte Esterase Large H (Negative) Ur Squamous Epith Cells 6 H (0-4) /hpf Urine Bacteria Occasional H (None) /hpf Urine Mucus Rare H (None) /hpf Assessment and Plan Assessment: Postoperative day #1. Patient is resting without new complaints. Blood pressures 120s to 130s over 70s to 80s. She is not on any antihypertensives at this point. She is feeling well. Plan is to discontinue the magnesium sulfate at 5:00 this evening and then discontinue her catheter thereafter. We'll advance her diet throughout the day. Check a CBC today. Continue routine postoperative care. (1) delivery delivered Current Visit: Yes Status: Acute Code(s): O82 - ENCOUNTER FOR DELIVERY WITHOUT INDICATION SNOMED Code(s): 298848083 (2) Pre-eclampsia Current Visit: Yes Status: Acute Code(s): O14.90 - UNSPECIFIED PRE- ECLAMPSIA, UNSPECIFIED TRIMESTER SNOMED Code(s): 249787549
[2021-08-16 08:04] LABS: Basophils % (A) 0 %; Eosinophils % (A) 0 %; HCT 31.4 % (34.0-46.0); HGB 10.7 gm/dL (11.4-16.0); Lymphocytes # (A) 1.6 k/uL (1.0-4.8); Lymphocytes % (A) 17 %; MCH 26.6 pg (25.0-35.0); MCHC 34.1 g/dL (31.0-37.0); MCV 77.9 fL (80.0-100.0); Mean Platelet Volume 8.5; Monocytes # (A) 0.4 k/uL (0-1.0); Monocytes % (A) 4 %; Neutrophils # (A) 7.3 k/uL (1.3-7.7); Neutrophils % (A) 78 %; Platelet Count 174 k/uL (150-450); RBC 4.03 m/uL (3.80-5.40); RDW 15.2 % (11.5-15.5); WBC 9.4 k/uL (3.8-10.6)
[2021-08-16] MEDS: SENNOSIDES-DOCUSATE SODIUM 1 EACH TAB PO SCH ×2 (08:27→20:43)
[2021-08-17] MEDS: LACTATED RINGERS 1,000 ML IV SCH (06:25)
--- NOTE | 2021-08-17 06:56 | P.PNOBGPC ---
Subjective - Subjective Patient reports: Reports appetite normal, Reports voiding normally, Reports pain well controlled, Reports ambulating normally : doing well Objective - Vital Signs Latest vital signs: Vital Signs Temp Pulse Resp BP Pulse Ox 08/17/21 04:00 98.7 F 76 15 123/78 08/17/21 02:00 15 08/16/21 23:51 97.8 F 87 16 149/70 08/16/21 23:48 16 08/16/21 20:00 97.8 F 78 16 128/90 98 08/16/21 16:00 96.8 F L 92 16 135/67 98 08/16/21 14:00 85 16 132/82 98 08/16/21 13:00 96.7 F L 64 16 137/83 99 08/16/21 11:00 98 F 78 16 151/88 98 08/16/21 10:00 84 16 147/87 98 08/16/21 09:00 80 16 130/82 99 08/16/21 08:00 96.8 F L 80 16 123/83 99 Intake and Output 08/16/21 08/16/21 08/17/21 14:59 22:59 06:59 Intake Total 2050 1510 480 Output Total 1775 1700 400 Balance 275 -190 80 Intake: IV 400 100 Magnesium Sulfate-Water 400 100 Pmx 20 gm In Water For Injection 1 500ml.bag @ 2 GM/HR 50 mls/hr IV .Q10H ANGELA Rx#:[id number] Intake, IV Titration 900 100 Amount Lactated Ringers 1,000 ml 400 100 @ 125 mls/hr IV .Q8H ANGELA Rx#:[id number] Magnesium Sulfate-Water 500 Pmx 20 gm In Water For Injection 1 500ml.bag @ 2 GM/HR 50 mls/hr IV .Q10H ANGELA Rx#:[id number] Oral 750 1310 480 Output: Urine 1775 1700 400 Uretheral (Rehman) 300 Other: Voiding Method Indwelling Catheter - Exam Lungs: bilateral: normal Chest: Normal S1, Normal S2 Extremities: Present: normal Abdomen: Present: normal appearance, soft. Absent: distention, tenderness Incision: Present: normal, dry, intact Uterus: Present: normal, firm - Labs Labs: Abnormal Lab Results - Last 24 Hours (Table) 08/16/21 Range/Units 07:25 Hgb 10.7 L (11.4-16.0) gm/dL Hct 31.4 L (34.0-46.0) % MCV 77.9 L (80.0-100.0) fL Assessment and Plan Assessment: Postoperative day #2. Patient is resting without complaints and wishes to go home. Blood pressures are good not requiring any medications. She is without s ymptoms. She's tolerating regular diet, urinating, ambulating without difficulty. My impression at this is resolving preeclampsia and patient is felt to be stable for discharge home. She'll follow up with Dr. Sanz on Wednesday for blood pressure check and incision check. Continue routine postoperative care. (1) delivery delivered Current Visit: Yes Status: Acute Code(s): O82 - ENCOUNTER FOR DELIVERY WITHOUT INDICATION SNOMED Code(s): 846094358 (2) Pre-eclampsia Current Visit: Yes Status: Acute Code(s): O14.90 - UNSPECIFIED PRE- ECLAMPSIA, UNSPECIFIED TRIMESTER SNOMED Code(s): 404133623
--- NOTE | 2021-08-17 07:03 | P.DS ---
Providers Date of admission: 08/15/21 13:00 Expected date of discharge: 08/17/21 Attending physician: Juliet Sanz Primary care physician: Stated None - Discharge Diagnosis(es) (1) delivery delivered Current Visit: Yes Status: Acute (2) Pre-eclampsia Current Visit: Yes Status: Acute Hospital Course: Please see dictated H&P for intimate details of this patient's admission. Brief summary this is a pleasant 31-year-old 3 para [address] aSnz for preeclampsia, anhydramnios, and breech presentation. Patient underwent a primary low transverse section for viable male infant. Please see dictated operative note. Postoperatively the patient was on magnesium sulfate for 24 hours. Blood pressures remained good and did not require any medications. Catheter was discontinued and she was urinating without difficulty. Is tolerating regular diet and ambulating without difficulty. Patient's felt be stable for discharge home follow-up for an incision and blood pressure check in 1 week. Procedures: Primary low transverse section Patient Condition at Discharge: Good Plan - Discharge Summary Discharge Rx Participant: Yes New Discharge Prescriptions: New Ibuprofen [Motrin] 600 mg PO Q6H #30 tab oxyCODONE HCL [OxyIR] 5 mg PO Q4HR PRN #18 tab PRN Reason: Pain Scale 4 - 6 No Action Pnv No.95/Ferrous Fum/Folic AC [ Multivitamin Tablet] 1 tab PO DAILY Iron 1 tab PO DAILY Discharge Medication List Iron 1 tab PO DAILY 12/05/17 [History] Pnv No.95/Ferrous Fum/Folic AC [ Multivitamin Tablet] 1 tab PO DAILY 12/05/17 [History] Ibuprofen [Motrin] 600 mg PO Q6H #30 tab 08/16/21 [Rx] oxyCODONE HCL [OxyIR] 5 mg PO Q4HR PRN #18 tab 08/16/21 [Rx] Follow up Appointment(s)/Referral(s): Juliet Sanz DO [Doctor of Osteopathic Medicine] - 1 Week Patient Instructions/Handouts: (DC), Hypertension During (DC) Activity/Diet/Wound Care/Special Instructions: No strenuous activity or heavy lifting for 6 weeks. No intercourse or anything per vagina for 6 weeks. Please call if any fever, chills, excessive vaginal bleeding, and/or abdominal pain. Discharge Disposition: HOME SELF-CARE
[2021-08-17] MEDS: ACETAMINOPHEN TAB 500 MG TAB PO SCH ×3 (07:10→11:14)
[2021-08-17 07:22] VITALS: RESP 18; TEMP 98.3
[2021-08-17] MEDS: IBUPROFEN 600 MG TAB PO SCH ×2 (07:25→09:05)
[2021-08-17] MEDS ORDERED: SIMETHICONE 80 MG CHEWABLE PO PRN (09:40)
[2021-08-17] MEDS: SENNOSIDES-DOCUSATE SODIUM 1 EACH TAB PO SCH (10:00)
[2021-08-17 10:52] VITALS: BP 145/96; PULSE 88
--- NOTE | 2021-08-17 17:17 | P.PN ---
Progress Note - Text 08/16/21 710am 71-year-old female status post with spinal Duramorph patient seen and evaluated for postop pain control Krupa patient has a VAS of 4 with no complaints of nausea vomiting, she has complains of pruritus which should subside. Patient doing well
== END 2021-08-17 11:30 | disposition home or self-care (01) | DRG 787 ==
LOC: 4FBP 13:00
PROVIDERS: ADMIT Obstetrics & Gynecology; ATTEND Obstetrics & Gynecology
PROC: 10D00Z1 Extraction of Products of Conception, Low, Open Approach (ICD-10-PCS; principal; 2021-08-15 17:27)
DX: O14.14 Severe pre-eclampsia complicating childbirth (principal); O41.03X0 Oligohydramnios, third trimester, not applicable or unspecified; O32.1XX0 Maternal care for breech presentation, not applicable or unspecified; O99.344 Other mental disorders complicating childbirth; F90.9 Attention-deficit hyperactivity disorder, unspecified type; Z37.0 Single live birth; Z3A.36 36 weeks gestation of pregnancy; Z80.8 Family history of malignant neoplasm of other organs or systems; Z28.310 Unvaccinated for COVID-19
CPT/HCPCS: 81001; 82565; 82570; 83615; 84156; 84450; 84460; 84520; 84550; 85025; 85461; 85610; 85730; 86850; 86900; 86901; 88307